=== PATIENT | female | born 1950 | race African-American/Black ===

== ENCOUNTER 2017-08-08 00:16 | Inpatient (IN) | payer MEDICARE, MEDICAID ==
[~2017-08-08] VITALS: Ht 170.2 cm; Wt 78.5 kg
--- NOTE | 2017-08-08 00:57 | NUR ---
Pt medically cleared by Dr. Lewis for admission. Report called to Justin, preparing pt to go to the floor
[2017-08-08 01:25] VITALS: BP 124/86
[2017-08-08 02:27] LABS: *BILIRUBIN,URIN NEGATIVE (NEGATIVE); *BLOOD, URINE Trace-lysed (NEGATIVE); *CLARITY,URINE CLEAR (CLEAR); *COLOR,URINE YELLOW (YELLOW); *KETONES,URINE NEGATIVE (NEGATIVE); *PROTEIN,URINE NEGATIVE (NEGATIVE); *UROBILINOGEN,URINE 0.2 E.U./dl (NORMAL); LEUKOCYTE ESTERASE ,URINE NEGATIVE (NEGATIVE); NITRITE, URINE NEGATIVE (NEGATIVE); PH,URINE 5.5 (5.0-8.0); UGLUCOSE NEGATIVE (NEGATIVE)
[2017-08-08] MEDS ORDERED: TEMAZEPAM 7.5 MG CAPSULE PO PRN (02:45)
[2017-08-08] MEDS ORDERED: MAGNESIUM HYDROXIDE 30 ML LIQUID UDC PO PRN (02:45)
[2017-08-08] MEDS ORDERED: MAG HYDROX/AL HYDROX/SIMETH 30 ML LIQUID UDC PO PRN (02:45)
[2017-08-08] MEDS ORDERED: CLONAZEPAM 0.5 MG TABLET PO SCH (02:45)
[2017-08-08] MEDS ORDERED: ACETAMINOPHEN 325 MG TABLET PO PRN (02:45)
[2017-08-08 02:46] LABS: RBC,URINE 0-3 /HPF (0-3); WBC,URINE 0-3 /HPF (0-3)
[2017-08-08 02:47] LABS: BACTERIA,URINE NONE SEEN /HPF (NONE SEEN); SQUAMOUS EPITHELIAL CELL,UR FEW /HPF (NONE SEEN); TRANSITIONAL EPI CELLS,URINE FEW /LPF (NONE SEEN)
--- NOTE | 2017-08-08 05:03 | NUR ---
ADMISSION NOTES: 66 Y.O -MALTESE FEMALE BROUGHT TO MHU FROM ER VIA GURNEY, ACCOMPANIED BY ER STAFF, Pt ON A 5150 HOLD FOR DTS. ACCORDING TO THE HOLD, Pt ENDORSED SUICIDAL IDEATION BUT DENIED A CURRENT PLAN. Pt NOTED A HISTORY OF 3 SUICIDAL ATTEMPTS, ENDORSED CURRENT AUDITORY/VISUAL HALLUCINATIONS, WELL BEING OUT OF HER PSYCHOTROPIC MEDICATIONS FOR 3-4 WEEKS. UPON FACE TO FACE ASSESSMENT, Pt APPEARS TO REFLECT WHAT IS ON THE HOLD. Pt IS A/O X 3, AND COOPERATIVE WITH ASSESSMENT. Pt CURRENTLY DENIES DEPRESSION/ANXIETY. ENDORSES SUICIDAL IDEATION BUT AGREED TO CONTRACT FOR SAFETY INSIDE HOSPITAL. Pt STATES THAT SHE IS CURRENTLY HOMELESS. Pt STATES THAT SHE HAS HAD 3 PREVIOUS SUICIDE ATTEMPTS, STATING, "I HAVE TRIED TO OVERDOSE ON SEROQUEL BEFORE." Pt STATES BEING PREVIOUSLY HOSPITALIZED IN A PSYCHIATRIC UNIT TWICE. Pt EXHIBITS FLAT AFFECT AND MAINTAINS EYE CONTACT. Pt STATES THAT SHE IS WILLING TO ACCEPT TREATMENT, AND WILL PARTICIPATE WITH THE PROGRAM IN MHU. Pt APPEARS UNKEMPT, AND WITH NOTED RASHES ON HER UPPER AND LOWER BACK. SUSPECTED SCABIES, CONSULT ORDERED FOR THE MORNING, AND Pt PLACED IN ISOLATION PRECAUTION. Pt GAVE VERBAL PERMISSION TO CALL HER SISTER - ALKA SILVESTRE [phone], WILL CALL AT A MORE APPROPRAITE TIME. DR. MCFARLANE AND DR. ROMERO HAVE BOTH BEEN NOTIFIED OF ADMISSION, ORDERS RECEIVED. Pt ORIENTED TO UNIT, AND EDUCATED ON RULES. CONTRABAND PLACED IN UNIT LOCKER. VS STABLE. NO AGGRESSIVE BEHAVIORS NOTED.
[2017-08-08] MEDS ORDERED: RIVA20TA PO (05:28)
[2017-08-08] MEDS ORDERED: BENZ1TAB7 PO (05:28)
[2017-08-08] MEDS ORDERED: HYDR25TA4 PO (05:28)
[2017-08-08 07:30] VITALS: BP 132/88
[2017-08-08] MEDS: BENZTROPINE MESYLATE 0.5 MG TABLET PO SCH ×2 (11:18→16:59)
[2017-08-08] MEDS: HALOPERIDOL 2 MG TABLET PO SCH ×2 (11:18→16:58)
[2017-08-08] MEDS ORDERED: FENTANYL CITRATE 100 MCG/2 ML AMPUL ONE (12:12)
[2017-08-08 16:22] VITALS: BP 126/71
[2017-08-08] MEDS ORDERED: diphenhydrAMINE 25 MG CAP PO PRN (16:30)
[2017-08-08] MEDS: RIVAROXABAN 10 MG TABLET PO SCH (16:58)
[2017-08-08 20:00] VITALS: BP 136/74
[2017-08-08] MEDS ORDERED: PERMETHRIN 5% CREAM 60 GM TUBE TP ONE (21:00)
[2017-08-09 07:30] VITALS: BP 155/96
[2017-08-09 08:06] LABS: THYROID STIMULATING HORMONE 0.82 mIU/mL (0.358-3.740)
[2017-08-09 08:16] LABS: BASOPHILS % (AUTO) 0.8 % (0.0-2.0); EOSINOPHILS # (AUTO) 0.2 K/uL (0.0-0.7); EOSINOPHILS % (AUTO) 3.6 % (0.0-7.0); HEMATOCRIT 35.4 % (31.2-41.9); LYMPHOCYTES # (AUTO) 2.8 K/uL (20.0-40.0); MEAN CORPUSCULAR HEMOGLOBIN 28.9 uug (24.7-32.8); MEAN CORPUSCULAR HGB CONC 34 g/dL (32.3-35.6); MEAN CORPUSCULAR VOLUME 85.3 fL (75.5-95.3); MONOCYTES # (AUTO) 0.7 K/uL (2.0-10.0); MONOCYTES % (AUTO) 10.8 % (0.0-11.0); NEUTROPHILS # (AUTO) 2.5 K/uL (1.8-8.9); NEUTROPHILS % (AUTO) 39.8 % (38.5-71.5); PLATELET COUNT (AUTO) 324 K/uL (179-408); RED BLOOD CELL COUNT(AUTO) 4.15 MIL/uL (3.63-4.92); WHITE BLOOD COUNT (AUTO) 6.2 K/uL (3.8-11.8)
[2017-08-09 08:24] LABS: BILIRUBIN,TOTAL 0.4 mg/dL (0.2-1.0); CREATININE 0.8 mg/dL (0.6-1.3); MAGNESIUM 1.7 mg/dL (1.8-2.4); PHOSPHOROUS 3.1 mg/dL (2.5-4.9); POTASSIUM 3.8 mmol/L (3.5-5.1); TOTAL PROTEIN, SERUM 7.2 g/dL (6.4-8.2)
[2017-08-09] MEDS: BENZTROPINE MESYLATE 0.5 MG TABLET PO SCH ×2 (08:55→16:13)
[2017-08-09] MEDS: HALOPERIDOL 2 MG TABLET PO SCH (09:00)
[2017-08-09] MEDS: HYDROCHLOROTHIAZIDE 25 MG TABLET PO SCH (09:00)
[2017-08-09] MEDS: NICOTINE 14 MG/24HR PATCH TD SCH (09:00)
[2017-08-09] MEDS ORDERED: CLONAZEPAM 0.5 MG TABLET PO PRN (09:37)
[2017-08-09] MEDS: FLUPHENAZINE HCL 5 MG TABLET PO SCH (11:02)
[2017-08-09] MEDS: TRAZODONE 50 MG TABLET PO SCH ×2 (11:06→16:13)
[2017-08-09] MEDS ORDERED: MAGNESIUM OXIDE 400 MG TABLET PO ONE (13:00)
--- NOTE | 2017-08-09 16:13 | NUR ---
Initial DC Plan: Patient is currently homeless and does not want any family members contacted. SW will follow up with MD and patient to dicuss most appropriate discharge plans. SW will form a safe and proper discharge.
[2017-08-09] MEDS: RIVAROXABAN 10 MG TABLET PO SCH (16:14)
--- NOTE | 2017-08-09 16:16 | NUR ---
Firearms Reporting: OJE submitted Mental Health Report to [employer] on 08/09.
[2017-08-09 20:00] VITALS: BP 146/85
--- NOTE | 2017-08-09 21:00 | NUR ---
RECEIVED PATIENT IN HER ROOM IN BED. SHE WAS NOTED A/O X 3, SHE IS ABLE TO AMBULATED WITH STEADY GAIT AND ABLE TO MAKE HER NEEDS KNOWN. SHE WAS NOTED WITH DEPRESSED MOOD, BLUNTED AFFECT. SHE DENIES SI OR ANY PLANS TO HARM SELF. PT COMPLIANT WITH PLAN OF CARE AT THIS TIME. NO BX PROBLEMS NOTED AT THIS TIME. SAFETY WAS EMPHASIS. BED AT LOWEST POSITION, WITH WHEELS LOCKED AND FREQUENT ROUNDS.
[2017-08-10 07:30] VITALS: BP 136/96
--- NOTE | 2017-08-10 07:42 | NUR ---
FASTING BS THIS AM IS 188
[2017-08-10] MEDS: NICOTINE 14 MG/24HR PATCH TD SCH ×2 (09:00→09:06)
[2017-08-10] MEDS: FLUPHENAZINE HCL 5 MG TABLET PO SCH (09:04)
[2017-08-10] MEDS: BENZTROPINE MESYLATE 0.5 MG TABLET PO SCH ×2 (09:04→17:06)
[2017-08-10] MEDS: HYDROCHLOROTHIAZIDE 25 MG TABLET PO SCH (09:05)
[2017-08-10] MEDS: TRAZODONE 50 MG TABLET PO SCH ×2 (09:06→17:06)
--- NOTE | 2017-08-10 11:35 | NUR ---
REC D PATIENT IN AM ASLEEP ANS AROUSAL TO VERBAL AND TACTILE STIMULATION AFFECT BLUNTED AND MOOD IRRITABLE , RERFUSED NICOTINE PATCH remains isolative and angry, continue to monitor for safety
[2017-08-10 16:00] VITALS: BP 136/100
[2017-08-10] MEDS: RIVAROXABAN 10 MG TABLET PO SCH (17:08)
--- NOTE | 2017-08-10 20:00 | NUR ---
RECEIVED PT IN HER ROOM ASLEEP BUT EASILY AWAKEN, SHE WAS NOTED A/O X 3 ABLE TO AMBULATED WITH STEADY GAIT. SHE REMAINS, WITHDRAWN, EASILY IRRITABLE. PATIENT REFUSED TO ANSWER ANY MORE QUESTIONS. SAFETY EMPHASIS. FREQUENT ROUNDINGS. PT ENCOURAGE TO VERBALIZED FEELINGS. WILL CONTINUE TO MONITOR CLOSELY.
[2017-08-10 21:09] VITALS: BP 155/83
--- NOTE | 2017-08-11 06:57 | NUR ---
patient slept for approx 9.30 hrs through the night. She refused a shower. continue withdrawn to her room
[2017-08-11 07:30] VITALS: BP 140/78
[2017-08-11] MEDS: BENZTROPINE MESYLATE 0.5 MG TABLET PO SCH ×2 (08:44→17:26)
[2017-08-11] MEDS: FLUPHENAZINE HCL 5 MG TABLET PO SCH (08:46)
[2017-08-11] MEDS: HYDROCHLOROTHIAZIDE 25 MG TABLET PO SCH (08:46)
[2017-08-11] MEDS: TRAZODONE 50 MG TABLET PO SCH ×2 (08:46→17:22)
[2017-08-11] MEDS: NICOTINE 14 MG/24HR PATCH TD SCH (08:54)
--- NOTE | 2017-08-11 15:12 | NUR ---
patient remains isolative and withdrawn and irritable when asking pt how is she feeling or how she s feeling no plans for suicide when asked in am in room sleeping most of shift. continue to monitor for safety
[2017-08-11 15:53] VITALS: BP 165/83
[2017-08-11] MEDS: RIVAROXABAN 10 MG TABLET PO SCH (17:24)
[2017-08-11 20:00] VITALS: BP 144/77
[2017-08-11 20:27] VITALS: BP 144/77
--- NOTE | 2017-08-12 05:17 | NUR ---
RECEIVED Pt IN HER ROOM SLEEPING, AROUSES EASILY. A+Ox3, FAIR INSIGHT INTO CONDITION AND REASON FOR ADMISSION. Pt STATES SHE IS "REALLY DEPRESSED" BECAUSE SHE IS HOMELESS AND HAS BEEN ARGUING WITH HER SISTER, WHO IS HER MAIN SOURCE OF SUPPORT. Pt EXHIBITS BLUNTED AFFECT AND APPEARS DYSPHORIC AND ANHEDONIC. Pt IS ISOLATIVE TO HERSELF, NO INTERACTION WITH PEERS NOTED. REMAINS SECLUSIVE TO HER ROOM, PASSIVE AND GUARDED DURING ASSESSMENT, PRESENTS WITH POOR EYE CONTACT AND THOUGHT BLOCKING. DENIES CURRENT THOUGHTS OF SI, CFS INSIDE THE HOSPITAL, UNRELIABLE FOR SAFETY OUTSIDE THE HOSPITAL. NOTED TO BE SOMEWHAT IRRITABLE WITH PRESSURED SPEECH. VS STABLE, DENIES PAIN. NO AGGRESSIVE OR COMBATIVE BEHAVIORS.
[2017-08-12 07:30] VITALS: BP 133/75
[2017-08-12] MEDS: FLUPHENAZINE HCL 5 MG TABLET PO SCH (08:40)
[2017-08-12] MEDS: BENZTROPINE MESYLATE 0.5 MG TABLET PO SCH ×2 (08:40→17:10)
[2017-08-12] MEDS: TRAZODONE 50 MG TABLET PO SCH ×2 (08:40→17:10)
[2017-08-12] MEDS: CHOLECALCIFEROL 1,000 UNIT TABLET PO SCH (08:41)
[2017-08-12] MEDS: METOPROLOL TARTRATE 25 MG TABLET PO SCH ×2 (08:41→20:33)
[2017-08-12] MEDS: NICOTINE 14 MG/24HR PATCH TD SCH (08:44)
[2017-08-12] MEDS: HYDROCHLOROTHIAZIDE 25 MG TABLET PO SCH (08:52)
--- NOTE | 2017-08-12 13:24 | NUR ---
REPORT CALLED TO JESSE CLANCY AND PATIENT LEFT FOR SNF VIA AMBULANCE IN NO ACUTE DISTRESS WITH ALL BELONGINGS THE PAIR OF PANTS PT WORE THERE., NO BEHAVIOR PROBLEMS NOITED. Addendum: 08/12/17 at 1329 by BENITA ART RN ABOVE REPORT IN ERROR PLEASE DIS REGARD
[2017-08-12 15:41] VITALS: BP 156/87
[2017-08-12] MEDS: RIVAROXABAN 10 MG TABLET PO SCH (17:16)
--- NOTE | 2017-08-12 17:42 | NUR ---
patient remains confused and withdrawn no self disclousure , yet more pleasant interactions continue to monitor for s.i.
[2017-08-12 19:38] VITALS: BP 111/55
--- NOTE | 2017-08-13 06:10 | NUR ---
GPS: REMAIN CALM AND COOPERATIVE. NO AGITATION NOTED. STILL NOTED ISOLATIVE IN HER ROOM. SLEPT 09:30 HRS THROUGH THE NIGHT. CONTINUE MONITORING FOR SAFETY.
[2017-08-13 07:30] VITALS: BP 146/86
[2017-08-13] MEDS: CHOLECALCIFEROL 1,000 UNIT TABLET PO SCH (09:32)
[2017-08-13] MEDS: TRAZODONE 50 MG TABLET PO SCH ×2 (09:32→17:26)
[2017-08-13] MEDS: FLUPHENAZINE HCL 5 MG TABLET PO SCH ×2 (09:32→17:26)
[2017-08-13] MEDS: BENZTROPINE MESYLATE 0.5 MG TABLET PO SCH ×2 (09:33→17:26)
[2017-08-13] MEDS: METOPROLOL TARTRATE 25 MG TABLET PO SCH ×2 (09:33→20:03)
[2017-08-13] MEDS: NICOTINE 14 MG/24HR PATCH TD SCH (09:33)
[2017-08-13] MEDS: HYDROCHLOROTHIAZIDE 25 MG TABLET PO SCH (09:36)
[2017-08-13 15:31] VITALS: BP 103/63
[2017-08-13] MEDS: RIVAROXABAN 10 MG TABLET PO SCH (17:27)
[2017-08-13 20:24] VITALS: BP 136/73
--- NOTE | 2017-08-14 06:03 | NUR ---
GPS: REMAIN CALM AND COOPERATIVE WITH CARE AND MEDICATIONS. NO BEHAVIOR PROBLEM NOTED. CONTINUE PLAN OF CARE. SLEPT 9:30 HRS THROUGH THE NIGHT.
[2017-08-14 07:30] VITALS: BP 124/78
[2017-08-14] MEDS: BENZTROPINE MESYLATE 0.5 MG TABLET PO SCH ×2 (08:52→16:46)
[2017-08-14] MEDS: FLUPHENAZINE HCL 5 MG TABLET PO SCH ×2 (08:52→16:47)
[2017-08-14] MEDS: CHOLECALCIFEROL 1,000 UNIT TABLET PO SCH (08:52)
[2017-08-14] MEDS: METOPROLOL TARTRATE 25 MG TABLET PO SCH ×2 (08:53→20:21)
[2017-08-14] MEDS: TRAZODONE 50 MG TABLET PO SCH ×2 (08:53→16:47)
[2017-08-14] MEDS: HYDROCHLOROTHIAZIDE 25 MG TABLET PO SCH (08:54)
[2017-08-14] MEDS: NICOTINE 14 MG/24HR PATCH TD SCH (09:00)
[2017-08-14 15:06] VITALS: BP 130/81
[2017-08-14] MEDS: RIVAROXABAN 10 MG TABLET PO SCH (16:49)
[2017-08-14 19:35] VITALS: BP 136/70
[2017-08-15 07:30] VITALS: BP 106/69
[2017-08-15] MEDS: BENZTROPINE MESYLATE 0.5 MG TABLET PO SCH (08:10)
[2017-08-15] MEDS: TRAZODONE 50 MG TABLET PO SCH ×2 (08:12→17:49)
[2017-08-15] MEDS: FLUPHENAZINE HCL 5 MG TABLET PO SCH ×2 (08:13→17:49)
[2017-08-15] MEDS: CHOLECALCIFEROL 1,000 UNIT TABLET PO SCH (08:14)
[2017-08-15] MEDS: NICOTINE 14 MG/24HR PATCH TD SCH (09:00)
[2017-08-15] MEDS: HYDROCHLOROTHIAZIDE 25 MG TABLET PO SCH (09:38)
[2017-08-15] MEDS: METOPROLOL TARTRATE 25 MG TABLET PO SCH ×2 (09:39→20:34)
[2017-08-15 16:19] VITALS: BP 97/64
[2017-08-15] MEDS: RIVAROXABAN 10 MG TABLET PO SCH (17:50)
--- NOTE | 2017-08-15 18:18 | NUR ---
RECEIVED Pt IN BED, SLEEPING, EASY TO AROUSE, A/O X 3. Pt IS COOPERATIVE, COMPLIANT WITH MEDS AND CARE STAFF, CALM AND PLEASANT, FLAT AFFECT, DEPRESSED, STAYED ISOLATED THROUGHOUT WHOLE SHIFT. NO BEHAVIORAL PROBLEMS NOTED.
[2017-08-15 20:06] VITALS: BP 121/80
[2017-08-15] MEDS: BENZTROPINE MESYLATE 1 MG TABLET PO SCH (20:33)
[2017-08-15] MEDS ORDERED: BENZTROPINE MESYLATE 0.5 MG TABLET PO SCH (21:00)
--- NOTE | 2017-08-15 22:00 | NUR ---
received to care, lying in bed, pleasant, upon approach. compliant with medications, and staff direction. PRN restoril was given at 2037, for stated insomnia. as of 2199, she appears to be asleep. no distress noted. will continue to monitor closely.
--- NOTE | 2017-08-16 06:00 | NUR ---
slept 9.5 hours. continues to sleep. no distress noted.
[2017-08-16 07:30] VITALS: BP 122/79
[2017-08-16] MEDS: FLUPHENAZINE HCL 5 MG TABLET PO SCH ×2 (08:10→17:47)
[2017-08-16] MEDS: CHOLECALCIFEROL 1,000 UNIT TABLET PO SCH (08:11)
[2017-08-16] MEDS: TRAZODONE 50 MG TABLET PO SCH ×2 (08:11→17:47)
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
[2017-08-16] MEDS: NICOTINE 14 MG/24HR PATCH TD SCH (09:00)
[2017-08-16] MEDS: HYDROCHLOROTHIAZIDE 25 MG TABLET PO SCH (09:00)
[2017-08-16] MEDS: METOPROLOL TARTRATE 25 MG TABLET PO SCH ×2 (09:00→20:34)
[2017-08-16 09:35] VITALS: BP 101/68
[2017-08-16 16:24] VITALS: BP 143/81
[2017-08-16] MEDS: RIVAROXABAN 10 MG TABLET PO SCH (17:47)
[2017-08-16 20:06] VITALS: BP 120/64
[2017-08-16] MEDS: BENZTROPINE MESYLATE 1 MG TABLET PO SCH (20:33)
--- NOTE | 2017-08-17 06:26 | NUR ---
GPS: REMAIN CALM AND COOPERATIVE. NO C/O PAIN OR DISCOMFORT @ THIS TIME.SLEPT 09:30 HRS THROUGH THE NIGHT. NO BEHAVIOR PROBLEM NOTED. CONTINUE PLAN OF CARE.
[2017-08-17 07:30] VITALS: BP 136/82
[2017-08-17] MEDS: HYDROCHLOROTHIAZIDE 25 MG TABLET PO SCH (08:26)
[2017-08-17] MEDS: FLUPHENAZINE HCL 5 MG TABLET PO SCH ×2 (08:26→18:22)
[2017-08-17 08:27] VITALS: BP 136/82
[2017-08-17] MEDS: METOPROLOL TARTRATE 25 MG TABLET PO SCH (08:27)
[2017-08-17] MEDS: CHOLECALCIFEROL 1,000 UNIT TABLET PO SCH (08:28)
[2017-08-17] MEDS: TRAZODONE 50 MG TABLET PO SCH ×2 (08:28→18:22)
[2017-08-17] MEDS: NICOTINE 14 MG/24HR PATCH TD SCH (08:29)
--- NOTE | 2017-08-17 11:51 | NUR ---
Updated DC Note: Patient will be discharged to [facility] [[address] [place] [id number]; ] via ambulance today. JOE spoke with Hudson from [facility] who confirmed discharge plans. Patient is alert and oriented x4 and denies SI and HI. Patient is aware and agreeable to discharge plans. Patient will follow up with Dr. Marroquin (Etl Bi Developer) and Dr. Ledbetter (Psychiatrist) at the facility. Patient was provided smoking cessation referrals for [place] lung association 800-LUNGUSA and [place] [facility] [phone].
--- NOTE | 2017-08-17 16:15 | NUR ---
Gps?construction equipment technician- Called [facility] Hosp. report was given to Katie Sales Marketing Director. All belongings given back to patient. Anxious about her discharge, does not want her sister be notified of the dc. plan , will attempt to call per pt. at a later time. All belongings given back to patient. In good spirit no complaints noted.
[2017-08-17] MEDS: RIVAROXABAN 10 MG TABLET PO SCH (18:37)
== END 2017-08-17 18:40 | DRG 885 ==
LOC: ER 00:24 → GPS 01:00
PROVIDERS: ADMIT Psychiatry & Neurology Psychiatry; ATTEND Internal Medicine
DX: F20.0 Paranoid schizophrenia (principal); E43 Unspecified severe protein-calorie malnutrition; E87.1 Hypo-osmolality and hyponatremia; E83.42 Hypomagnesemia; Z59.0 Homelessness; F31.9 Bipolar disorder, unspecified; I25.2 Old myocardial infarction; Z79.01 Long term (current) use of anticoagulants; E66.9 Obesity, unspecified; Z68.27 Body mass index [BMI] 27.0-27.9, adult; Z71.3 Dietary counseling and surveillance; F17.210 Nicotine dependence, cigarettes, uncomplicated; E55.9 Vitamin D deficiency, unspecified; Z91.5 Personal history of self-harm; I10 Essential (primary) hypertension
CPT/HCPCS: 36415; 82306; 83735; 84100; 84443; 85025; 85730; 87086; 93005; A4663; J3010; Q0163

== ENCOUNTER 2019-03-10 14:45 | Inpatient (IN) | payer MEDICARE, MEDICAID ==
[~2019-03-10] VITALS: Ht 170.2 cm; Wt 68.9 kg
[~2019-03-10 14:45] MED LIST: HYDR25TA4 PO; RIVA20TA PO
[2019-03-10] MEDS ORDERED: diphenhydrAMINE 50 MG/1 ML VIAL ONE (14:59)
[2019-03-10] MEDS ORDERED: LORAZEPAM 2 MG/1 ML VIAL ONE (14:59)
[2019-03-10] MEDS ORDERED: HALOPERIDOL LACTATE 5 MG/1 ML VIAL ONE (14:59)
[2019-03-10] MEDS ORDERED: diphenhydrAMINE 50 MG/1 ML VIAL IM ONE (15:00)
[2019-03-10] MEDS ORDERED: HALOPERIDOL LACTATE 5 MG/1 ML VIAL IM ONE (15:00)
[2019-03-10] MEDS ORDERED: LORAZEPAM 2 MG/1 ML VIAL IM ONE (15:00)
--- NOTE | 2019-03-10 15:25 | NUR ---
Per Dr. Juárez pt is medically cleared and may be trans to MHU. Called MHU multiple times for bed assignment with no answer. Nursing airport ramp supervisor notified.
[2019-03-10] MEDS ORDERED: FAMO20TA8 PO (15:40)
[2019-03-10] MEDS ORDERED: POTA10TA15 PO (15:40)
[2019-03-10] MEDS ORDERED: TRAZ-182 PO (15:40)
[2019-03-10] MEDS ORDERED: LISI10TA5 PO (15:40)
[2019-03-10] MEDS ORDERED: COGENTIN PO (15:40)
[2019-03-10] MEDS ORDERED: TRAZ-214 PO (15:40)
--- NOTE | 2019-03-10 15:50 | NUR ---
pt calm and resting. arousable
--- NOTE | 2019-03-10 17:00 | NUR ---
pt transfered to mhu in stable condition.
[2019-03-10] MEDS ORDERED: ACETAMINOPHEN 325 MG TABLET PO PRN (18:15)
[2019-03-10] MEDS ORDERED: MAG HYDROX/AL HYDROX/SIMETH 30 ML LIQUID UDC PO PRN (18:15)
[2019-03-10] MEDS ORDERED: ZOLPIDEM 5 MG TABLET PO PRN (18:15)
[2019-03-10] MEDS ORDERED: MAGNESIUM HYDROXIDE 30 ML LIQUID UDC PO PRN (18:15)
--- NOTE | 2019-03-10 19:00 | NUR ---
1730 Received patient from ER per deepak, a 68 year old an female, sedated but arousable when name is called. Respiration even and unlabored, no s/s acute distress. Nos/s of pain. Patient placed on 5150 for gravely disabled, patient paranoid,delusional,not eating for 3 days. She was found at a local [employer] parking area. Patient believed tjhat people are trying to poison her. Upon face to face; Patient is sedated from emergency medication that was adm. in ER. Patient unable to answer all questions, still very sleepy. Patient calm, need assistance with ADL's Body check done: no skin problem. No agitation/ aggressive behavior noted at this time. Will continue to monitor behavior.
[2019-03-10 20:26] VITALS: BP 138/80
--- NOTE | 2019-03-11 06:25 | NUR ---
GPS: Pt.slept 6.30 last night. Paranoid,suspicious and easily irritable when approached. Re-directed prn. Safety emphasized. Will continue to monitor. Refused to shower or to be assisted with her adl's.
[2019-03-11 07:30] VITALS: BP 118/97
--- NOTE | 2019-03-11 07:30 | NUR ---
RECIEVED PT IN HER ROOM. ALERT AND ORIENTED X 3. PT IS AMBULATORY WITH SLIGHT WEAKNESS ON HER LOWER EXTREMETIES. USES A WALKER WITH AMBULATION. PT HAS A LOT OF QUESTIONS AND WANTED TO TALK TO HER DOCTOR.
[2019-03-11] MEDS: FAMOTIDINE 20 MG TABLET PO SCH (07:48)
[2019-03-11 08:11] LABS: BASOPHILS # (AUTO) 0.1 K/uL (0.0-8.0); BASOPHILS % (AUTO) 1.2 % (0.0-2.0); EOSINOPHILS # (AUTO) 0.1 K/uL (0.0-0.7); EOSINOPHILS % (AUTO) 1.7 % (0.0-7.0); HEMATOCRIT 35.8 % (31.2-41.9); HEMOGLOBIN 11.7 g/dL (10.9-14.3); LYMPHOCYTES # (AUTO) 2.4 K/uL (20.0-40.0); LYMPHOCYTES % (AUTO) 38.5 % (20.5-51.5); MEAN CORPUSCULAR HEMOGLOBIN 28.9 uug (24.7-32.8); MEAN CORPUSCULAR HGB CONC 33 g/dL (32.3-35.6); MEAN CORPUSCULAR VOLUME 88.3 fL (75.5-95.3); MONOCYTES # (AUTO) 0.4 K/uL (2.0-10.0); MONOCYTES % (AUTO) 7.3 % (0.0-11.0); NEUTROPHILS # (AUTO) 3.2 K/uL (1.8-8.9); NEUTROPHILS % (AUTO) 51.3 % (38.5-71.5); PLATELET COUNT (AUTO) 447 K/uL (179-408); RED BLOOD CELL COUNT(AUTO) 4.06 MIL/uL (3.63-4.92); WHITE BLOOD COUNT (AUTO) 6.1 K/uL (3.8-11.8)
[2019-03-11] MEDS: HYDROCHLOROTHIAZIDE 25 MG TABLET PO SCH (08:32)
[2019-03-11] MEDS: POTASSIUM CHLORIDE 20 MEQ TAB.PRT.SR PO SCH (08:32)
[2019-03-11] MEDS: NICOTINE 21 MG/24HR PATCH TD SCH ×2 (08:32→09:00)
[2019-03-11] MEDS: LISINOPRIL 10 MG TABLET PO SCH (08:32)
[2019-03-11 08:33] LABS: THYROID STIMULATING HORMONE 6.153 mIU/mL (0.358-3.740)
[2019-03-11 08:56] LABS: BILIRUBIN,TOTAL 0.2 mg/dL (0.2-1.0); MAGNESIUM 1.8 mg/dL (1.8-2.4); PHOSPHOROUS 3.1 mg/dL (2.5-4.9); POTASSIUM 3.9 mmol/L (3.5-5.1); TOTAL PROTEIN, SERUM 7.3 g/dL (6.4-8.2)
[2019-03-11] MEDS ORDERED: FAMOTIDINE 20 MG TABLET PO SCH (09:00)
[2019-03-11] MEDS ORDERED: RIVAROXABAN 15 MG PO SCH (09:00)
--- NOTE | 2019-03-11 09:00 | NUR ---
PT REFUSED TO TAKE HER MORNING MEDICATIONS UNTIL SHE HAS SPOKEN WITH HER DOCTOR.
--- NOTE | 2019-03-11 11:45 | NUR ---
Initial Discharge Plan: Patient is a 68 year old female who is currently transient. Patient is currently evasive to discuss any discharge plans. She states she wants to live in [place] but refuses to elaborate a plan. Biomedical Photographer contacted patient's sisters Keiko Manzo // Maegan Miller [[phone] // [phone]] and left vmails to gather collateral information. Biomedical Photographer will continue to try to reach them. Biomedical Photographer will continue to meet with patient, and collaborate with patient, family, and MD to formulate a safe and proper discharge plan.
[2019-03-11] MEDS: diphenhydrAMINE 25 MG CAP PO SCH ×2 (12:29→20:09)
[2019-03-11] MEDS: FLUPHENAZINE HCL 5 MG TABLET PO SCH ×2 (12:29→20:09)
[2019-03-11] MEDS ORDERED: CALCIUM CARBONATE 500 MG TAB.CHEW PO PRN (13:30)
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
--- NOTE | 2019-03-11 15:00 | NUR ---
PT DECIDED TO TAKE HER MEDICATIONS LATE BUT REFUSED TO HAVE HER NICOTINE PATCH.
[2019-03-11 15:18] VITALS: BP 130/81
[2019-03-11] MEDS ORDERED: RIVAROXABAN 15 MG TABLET PO SCH (17:00)
[2019-03-11 20:00] VITALS: BP 131/81
[2019-03-11] MEDS: TRAZODONE 50 MG TABLET PO SCH (20:09)
--- NOTE | 2019-03-12 05:54 | NUR ---
Patient slept 4 hours last night. Up in chair in the room most of the night with many requests for food. Shower given this am. Patient back to room resting.
--- NOTE | 2019-03-12 06:15 | NUR ---
Attempted to reach Pt's sister Fe at the number on the face sheet, and left a voicemail. The number written on the Notification form is not accepting calls at this time.
[2019-03-12] MEDS: FAMOTIDINE 20 MG TABLET PO SCH (06:49)
[2019-03-12 07:54] VITALS: BP 130/76
[2019-03-12] MEDS ORDERED: RIVAROXABAN 15 MG TABLET PO SCH ×2 (08:00→09:15)
[2019-03-12] MEDS: FLUPHENAZINE HCL 5 MG TABLET PO SCH ×4 (08:51→21:42)
[2019-03-12] MEDS: POTASSIUM CHLORIDE 20 MEQ TAB.PRT.SR PO SCH ×3 (08:51→16:31)
[2019-03-12] MEDS: diphenhydrAMINE 25 MG CAP PO SCH ×3 (08:51→20:58)
[2019-03-12] MEDS: HYDROCHLOROTHIAZIDE 25 MG TABLET PO SCH ×2 (08:52→09:00)
[2019-03-12] MEDS: LISINOPRIL 10 MG TABLET PO SCH ×2 (08:55→09:00)
[2019-03-12] MEDS: NICOTINE 21 MG/24HR PATCH TD SCH (09:00)
[2019-03-12] MEDS: RIVAROXABAN 15 MG TABLET PO SCH ×2 (09:21→17:45)
[2019-03-12 16:36] VITALS: BP 143/77
[2019-03-12 20:20] VITALS: BP 149/80
[2019-03-12] MEDS: TRAZODONE 50 MG TABLET PO SCH (21:00)
[2019-03-13] MEDS: FAMOTIDINE 20 MG TABLET PO SCH (06:40)
[2019-03-13 07:30] VITALS: BP 152/69
[2019-03-13] MEDS: diphenhydrAMINE 25 MG CAP PO SCH ×2 (08:47→20:20)
[2019-03-13] MEDS: LISINOPRIL 10 MG TABLET PO SCH (08:48)
[2019-03-13] MEDS: RIVAROXABAN 15 MG TABLET PO SCH ×2 (08:48→17:58)
[2019-03-13] MEDS: NICOTINE 21 MG/24HR PATCH TD SCH (08:56)
[2019-03-13] MEDS: POTASSIUM CHLORIDE 20 MEQ TAB.PRT.SR PO SCH (08:56)
[2019-03-13] MEDS: HYDROCHLOROTHIAZIDE 25 MG TABLET PO SCH (08:57)
[2019-03-13] MEDS: FLUPHENAZINE HCL 5 MG TABLET PO SCH ×2 (08:58→20:20)
[2019-03-13] MEDS ORDERED: TRAZODONE 50 MG TABLET PO PRN (11:30)
[2019-03-13] MEDS ORDERED: FLUPHENAZINE HCL 5 MG TABLET PO ONE (11:30)
[2019-03-13 16:00] VITALS: BP 141/86
--- NOTE | 2019-03-13 17:00 | NUR ---
Pt received this morning resting in bed. Pt denies SI/ HI, and AH/VH, able to CFS. Pt is AAOx3, Pt denies pain. Pt seen by MD, new orders received. Pt compliant with medication as ordered. All comfort and safety needs attended to will continue to monitor and follow up as needed.
[2019-03-13 20:48] VITALS: BP 156/79
--- NOTE | 2019-03-13 21:19 | NUR ---
received to care, lying in bed, isolative, but appropriate, when engaged. compliant with medications and staff direction. as of now, she appears to be asleep. no distress noted. will continue to monitor closely.
--- NOTE | 2019-03-14 06:00 | NUR ---
slept 6.25 hours, total.
[2019-03-14] MEDS: FAMOTIDINE 20 MG TABLET PO SCH (06:58)
[2019-03-14 08:44] VITALS: BP 150/85
[2019-03-14] MEDS: HYDROCHLOROTHIAZIDE 25 MG TABLET PO SCH (09:00)
[2019-03-14] MEDS: POTASSIUM CHLORIDE 20 MEQ TAB.PRT.SR PO SCH (09:00)
[2019-03-14] MEDS: NICOTINE 21 MG/24HR PATCH TD SCH (09:00)
[2019-03-14] MEDS: FLUPHENAZINE HCL 5 MG TABLET PO SCH ×2 (09:03→20:27)
[2019-03-14] MEDS: diphenhydrAMINE 25 MG CAP PO SCH ×2 (09:03→20:27)
[2019-03-14] MEDS: LISINOPRIL 10 MG TABLET PO SCH (09:08)
[2019-03-14] MEDS: RIVAROXABAN 15 MG TABLET PO SCH ×2 (09:08→17:11)
[2019-03-14 16:00] VITALS: BP 125/70
[2019-03-14 20:35] VITALS: BP 115/50
--- NOTE | 2019-03-15 06:11 | NUR ---
GPS: Remain calm and cooperative with meds and care.slept 6:45 hrs through the night.ambulate with fww. self care. no agitation noted at this time. continue plan of care.
[2019-03-15] MEDS: FAMOTIDINE 20 MG TABLET PO SCH (06:39)
[2019-03-15 07:44] VITALS: BP 140/80
[2019-03-15] MEDS: diphenhydrAMINE 25 MG CAP PO SCH ×2 (08:17→20:30)
[2019-03-15] MEDS: FLUPHENAZINE HCL 5 MG TABLET PO SCH ×2 (08:17→20:30)
[2019-03-15] MEDS: HYDROCHLOROTHIAZIDE 25 MG TABLET PO SCH (08:21)
[2019-03-15] MEDS: RIVAROXABAN 15 MG TABLET PO SCH ×2 (08:23→17:02)
[2019-03-15] MEDS: POTASSIUM CHLORIDE 20 MEQ TAB.PRT.SR PO SCH (08:26)
[2019-03-15] MEDS: NICOTINE 21 MG/24HR PATCH TD SCH (08:27)
[2019-03-15] MEDS: LISINOPRIL 10 MG TABLET PO SCH (08:27)
[2019-03-15 15:42] VITALS: BP 135/78
[2019-03-15 19:31] VITALS: BP 153/87
--- NOTE | 2019-03-16 06:11 | NUR ---
GPS: Remain calm and cooperative with meds and care.slept 8:15 hrs through the night. patient ambulate with fww. able to care her self. no agitation noted at this time. continue plan of care.
[2019-03-16] MEDS: FAMOTIDINE 20 MG TABLET PO SCH (06:35)
[2019-03-16 07:30] VITALS: BP 139/73
[2019-03-16] MEDS: RIVAROXABAN 15 MG TABLET PO SCH ×2 (08:00→17:17)
[2019-03-16] MEDS ORDERED: OLANZAPINE 10 MG VIAL IM ONE ×2 (08:30→18:30)
[2019-03-16] MEDS: FLUPHENAZINE HCL 5 MG TABLET PO SCH ×2 (08:31→20:02)
[2019-03-16] MEDS: POTASSIUM CHLORIDE 20 MEQ TAB.PRT.SR PO SCH (08:31)
[2019-03-16] MEDS: HYDROCHLOROTHIAZIDE 25 MG TABLET PO SCH (08:31)
[2019-03-16] MEDS: diphenhydrAMINE 25 MG CAP PO SCH ×2 (08:31→20:02)
[2019-03-16] MEDS: NICOTINE 21 MG/24HR PATCH TD SCH (08:31)
[2019-03-16] MEDS: LISINOPRIL 10 MG TABLET PO SCH (08:31)
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
--- NOTE | 2019-03-16 18:28 | NUR ---
PT NOTED HIGHLY AGITATED, HOSTILE, AGGRESSIVE, AND COMBATIVE. YELLING/SCREAMING HIGHLY INAPPROPRIATE STATEMENTS AND RACIAL SLURS. PT NOTED STRIKING ROOMMATE OVER AND OVER AGAIN. POSTURING TOWARDS STAFF, RESPONDING TO INTERNAL STIMULI. CHARGE NURSE CALLED AND SPOKE TO DR. CHARLTON, ORDERED IM MEDICATIONS. NOTED AND WILL CARRY OUT.
[2019-03-16] MEDS ORDERED: LORAZEPAM 2 MG/1 ML VIAL IM ONE (18:30)
[2019-03-16 20:44] VITALS: BP 108/55
[2019-03-17] MEDS: FAMOTIDINE 20 MG TABLET PO SCH (06:49)
[2019-03-17 07:30] VITALS: BP 125/68
[2019-03-17] MEDS: RIVAROXABAN 15 MG TABLET PO SCH ×2 (07:48→17:13)
[2019-03-17] MEDS: diphenhydrAMINE 25 MG CAP PO SCH ×2 (08:19→20:02)
[2019-03-17] MEDS: FLUPHENAZINE HCL 5 MG TABLET PO SCH ×3 (08:19→16:33)
[2019-03-17] MEDS: LISINOPRIL 10 MG TABLET PO SCH (09:00)
[2019-03-17] MEDS: POTASSIUM CHLORIDE 20 MEQ TAB.PRT.SR PO SCH (09:00)
[2019-03-17] MEDS: HYDROCHLOROTHIAZIDE 25 MG TABLET PO SCH (09:00)
--- NOTE | 2019-03-17 13:35 | NUR ---
patient AOx1, patient ambulatory and self care, very needy , would ask more food even after giving meal tray, patient selectively refusing her medication, seen going to other patients room, redirect to go back to her room, will continue monitor
[2019-03-17 15:21] VITALS: BP 96/64
[2019-03-17 20:00] VITALS: BP 103/46
[2019-03-17] MEDS: LORAZEPAM 0.5 MG TABLET PO PRN (23:42)
--- NOTE | 2019-03-17 23:43 | NUR ---
GPS: Pt.is anxious and intrusive. Argumentative when being re-directed. Limit setting provided prn. Ativan 0.5mg given as requested by pt. Safety emphasized. Will continue to monitor.
[2019-03-18] MEDS: FAMOTIDINE 20 MG TABLET PO SCH (06:45)
[2019-03-18 07:30] VITALS: BP 110/57
[2019-03-18] MEDS: RIVAROXABAN 15 MG TABLET PO SCH ×2 (08:05→17:11)
[2019-03-18] MEDS: POTASSIUM CHLORIDE 20 MEQ TAB.PRT.SR PO SCH (08:24)
[2019-03-18] MEDS: diphenhydrAMINE 25 MG CAP PO SCH ×2 (08:24→21:09)
[2019-03-18] MEDS: FLUPHENAZINE HCL 5 MG TABLET PO SCH ×3 (08:25→16:04)
[2019-03-18] MEDS: HYDROCHLOROTHIAZIDE 25 MG TABLET PO SCH (08:26)
[2019-03-18] MEDS: LISINOPRIL 10 MG TABLET PO SCH (09:00)
--- NOTE | 2019-03-18 09:29 | NUR ---
GPS: received patient AOx3, patient compliant with medication, patient needy, grandiose, seen and examined by Dr. Schwarz, , patient start pacing in the hallway, patient drop her breakfast tray and started getting manic, spoke with patient about her behavior , tried to redirect , after step out of the unit patient stop her behavior, and borrowed the phone, patient stayed in her room, still grandiose, needy and verbally abusive
--- NOTE | 2019-03-18 14:30 | NUR ---
Social Work Note: Housing Coordinator provided patient a copy of her hearing certificate with JULIETH Molina as witness.
--- NOTE | 2019-03-18 14:32 | NUR ---
Discharge Planning: Editor Newspaper and - Dr. Schwarz met with patient at bedside to discuss discharge planning. Per patient, she would like to go to [place] to her sister's home. However, patient is unable to provide a contact number or an address to confirm this is a safe discharge plan. MD and psychologist social proposed alternate discharge plan to prison Editor Newspaper faxed referral packet to [facility] [[address] [place] [address]; ] for potential discharge plan.
[2019-03-18 15:07] VITALS: BP 144/81
[2019-03-18] MEDS: LORAZEPAM 0.5 MG TABLET PO PRN (15:18)
--- NOTE | 2019-03-18 16:15 | NUR ---
Social Work Note: Per patient request, Laboratory Associate called patient's sister Keiko [[phone]] and left a vmail with call back number.
--- NOTE | 2019-03-18 17:57 | NUR ---
GPS: patient been calm and cooperative, compliant with medication, however very needy, patient denies SI and HI
[2019-03-18 20:19] VITALS: BP 99/50
[2019-03-19] MEDS: FAMOTIDINE 20 MG TABLET PO SCH (06:51)
[2019-03-19 07:30] VITALS: BP 144/84
[2019-03-19] MEDS: RIVAROXABAN 15 MG TABLET PO SCH ×2 (07:39→17:05)
[2019-03-19] MEDS: FLUPHENAZINE HCL 5 MG TABLET PO SCH ×3 (08:15→16:24)
[2019-03-19] MEDS: diphenhydrAMINE 25 MG CAP PO SCH ×2 (08:15→20:30)
[2019-03-19] MEDS: POTASSIUM CHLORIDE 20 MEQ TAB.PRT.SR PO SCH (08:15)
[2019-03-19] MEDS: LISINOPRIL 10 MG TABLET PO SCH (08:15)
[2019-03-19] MEDS: HYDROCHLOROTHIAZIDE 25 MG TABLET PO SCH (08:41)
--- NOTE | 2019-03-19 09:56 | NUR ---
Discharge Planning: Per patient, she wants to contact her sister Ally [phone] to see if she can be discharged into her care. fabric worker fitter called and left a vmail with call back number. Traffic Enumerator to continue to follow up.
[2019-03-19] MEDS: LORAZEPAM 0.5 MG TABLET PO PRN (14:21)
[2019-03-19 15:55] VITALS: BP 117/52
--- NOTE | 2019-03-19 17:23 | NUR ---
GPS: RECEIVED PATIENT AOX3, COMPLIANT WITH MEDICATION, DENIES SI AND HI, PATIENT NEEDY , IN NO DISTRESS AT THE MOMENT
--- NOTE | 2019-03-19 20:00 | NUR ---
Received patient lying in bed. AAOx 3-4. Patient calm and cooperative at this time. No anxiety noted. Denies SI and HI. Denies any pain. VS WNL. Needs assessed and attended to. Safety measure initiated. Continue to monitor.
[2019-03-19 20:13] VITALS: BP 121/71
[2019-03-20] MEDS: LORAZEPAM 0.5 MG TABLET PO PRN ×4 (00:53→22:48)
--- NOTE | 2019-03-20 01:14 | NUR ---
PT GIVEN ATIVAN 0.5MG AT 0053H . PT WAS RESTLESS, CONSTANTLY IN AND OUT OF HER ROOM, ASKING FOR FOOD ALSO COMPLAINING OF MILD HEADACHE. PT WAS GIVEN TYLENOL 650MG AT 0056H. PT TOLERATED THE MEDICATION. WILL CONTINUE TO MONITOR.
--- NOTE | 2019-03-20 05:08 | NUR ---
Patient was on and off screaming, shouting loudly and repeatedly, stating "I'm in bed", when approach patient calms down for a second then starts yelling again. Offered Lorazepam and patient agreed and given Lorazepam 0.5mg PO. Continue to monitor.
--- NOTE | 2019-03-20 06:00 | NUR ---
Patient slept approximately 5.30 hours.
[2019-03-20] MEDS: FAMOTIDINE 20 MG TABLET PO SCH (07:03)
[2019-03-20] MEDS: FLUPHENAZINE HCL 5 MG TABLET PO SCH ×6 (09:07→21:05)
[2019-03-20] MEDS: POTASSIUM CHLORIDE 20 MEQ TAB.PRT.SR PO SCH (09:07)
[2019-03-20] MEDS: diphenhydrAMINE 25 MG CAP PO SCH ×2 (09:07→21:05)
[2019-03-20] MEDS: RIVAROXABAN 15 MG TABLET PO SCH ×2 (09:09→17:15)
[2019-03-20] MEDS: LISINOPRIL 10 MG TABLET PO SCH (09:10)
[2019-03-20] MEDS: HYDROCHLOROTHIAZIDE 25 MG TABLET PO SCH (10:00)
--- NOTE | 2019-03-20 10:15 | NUR ---
Gps/Environmental Remediation Specialist- Patient had bouts of yelling , loud, using nasty words , calling staff names, banging spivey , difficulty redirecting patient, offered ativan 0.5 mg po. Encouraged verbalizations of her feelings and needs, but patient gets verbally abusive towards staff. Continue to monitor safety.Dr Schwarz was called by [employer] [facility], informed of patient observed on going behavior.
[2019-03-20 10:48] VITALS: BP 138/81
[2019-03-20 16:50] VITALS: BP 118/63
[2019-03-20 20:30] VITALS: BP 114/71
--- NOTE | 2019-03-20 22:48 | NUR ---
PRN ativan, given for anxiety, at patients request.
--- NOTE | 2019-03-21 06:52 | NUR ---
slept well last night. continues to sleep. no distress noted.
[2019-03-21 07:58] VITALS: BP 138/86
--- NOTE | 2019-03-21 08:41 | NUR ---
Discharge Note Patient will be discharged to [facility] [[address] [place] [address]; ; ]. Please arrange ambulance transportation for patient to picked up at 11:00AM Spoke with Nahed [Supervisor Rice Milling; [phone]] at the facility who states they are ready to accept the patient today. Patient is alert and oriented times 4, denies suicidal or homicidal ideation, and is aware and agreeable with discharge plans. Patient is unable to plan for self-care at this time, however, is willing to accept care provided at the facility. Patient will follow-up at the facility with Dr. Verdin (Cut Off Saw Operator Metal) and Dr. Meredith (Psychiatrist). Patient was provided mental health referrals to [facility] and the National Suicide Prevention Lifeline . Patient will be discharged to a group home facility, however was still provided with a homeless resource packet. Homeless resource packet includes a list of emergency shelters, housing resources, drop in centers, and showers and hot meals centers. Patient was provided with the homeless retirement packet, which includes a list of emergency shelters, housing resources, drop in centers, and showers/hot meals centers. This also included the Homeless Information Hotline (660)-720-4652 or 563, [place] for [employer] , and the [facility] (186)-608-1109.
[2019-03-21] MEDS: FAMOTIDINE 20 MG TABLET PO SCH (09:24)
[2019-03-21] MEDS: diphenhydrAMINE 25 MG CAP PO SCH (09:24)
[2019-03-21] MEDS: POTASSIUM CHLORIDE 20 MEQ TAB.PRT.SR PO SCH (09:24)
[2019-03-21] MEDS: HYDROCHLOROTHIAZIDE 25 MG TABLET PO SCH (09:25)
[2019-03-21] MEDS: RIVAROXABAN 15 MG TABLET PO SCH (09:26)
[2019-03-21 09:44] VITALS: BP 138/86
[2019-03-21] MEDS: LISINOPRIL 10 MG TABLET PO SCH (09:44)
[2019-03-21] MEDS: FLUPHENAZINE HCL 5 MG TABLET PO SCH (09:45)
--- NOTE | 2019-03-21 12:00 | NUR ---
Gps/Customer Care Representative- Called [facility], report was given to Kendrick Monroe, patient assign to room 6B, ambulance was informed. All belongings given back to patient. Discharged in good spirit, w/ no new complaints noted.
[2019-04-02] MEDS ORDERED: RIVAROXABAN 10 MG TABLET PO SCH ×2 (18:00)
== END 2019-03-21 12:30 | DRG 885 ==
LOC: ER 14:45 → GPS 17:00
PROVIDERS: ADMIT Psychiatry & Neurology Psychiatry; ATTEND Internal Medicine
DX: F20.0 Paranoid schizophrenia (principal); I26.99 Other pulmonary embolism without acute cor pulmonale; E03.9 Hypothyroidism, unspecified; I25.2 Old myocardial infarction; Z79.01 Long term (current) use of anticoagulants; Z87.891 Personal history of nicotine dependence; I25.10 Atherosclerotic heart disease of native coronary artery without angina pectoris; Z59.0 Homelessness; Z79.899 Other long term (current) drug therapy; I10 Essential (primary) hypertension; F31.30 Bipolar disorder, current episode depressed, mild or moderate severity, unspecified
CPT/HCPCS: 36415; 83735; 84100; 84443; 85025; A4663; J1200; J1630; J2060; J2358; Q0163